=== PATIENT | female | born 1960 | race Caucasian/White ===

== ENCOUNTER 2016-05-05 09:26 | Emergency (ER) | payer OTHER ==
[2016-05-05 09:33] VITALS: BP 138/79; PULSE 73; TEMP 97.5; BMI 25.8
[2016-05-05] MEDS ORDERED: LORATADINE 10 MG TABLET PO ONE (10:07)
[2016-05-05] MEDS ORDERED: DEXAMETHASONE LIQUID 0.5 MG/5 ML 240 ML BULK BOTTLE PO ONE (10:07)
--- NOTE | 2016-05-05 10:07 | PDOC ---
History of Present Illness - General Chief Complaint: Sore Throat Stated Complaint: THROAT PAIN Time Seen by Provider: 05/05/16 09:48 History Source: Patient Exam Limitations: No Limitations - History of Present Illness Initial Comments: CHIEF COMPLAINT: 56 y/o afebrile female with no significant PMH c/o facial swelling and feeling of throat closing this morning. HISTORY OF PRESENT ILLNESS: The patient states that yesterday her face got a little swollen and she had some sinus pressure and tooth pain. She took a PO benadryl, felt better and went to sleep. This morning she woke up and states it felt like her throat was closing. SHe states that feeling has subsided. She denies f/c, n/v/d, CP, SOB, swelling to lips or tongue, dyspnea, abd pain, and all other symptoms. Vital signs on arrival are within normal limits. REVIEW OF SYSTEMS: GENERAL/CONSTITUTIONAL: No fever/chills. No weakness. No weight change. HEAD, EYES, EARS, NOSE AND THROAT: No change in vision. No ear pain or discharge. +sore throat. +nasal congestion. +teeth pain. +throat closing sensation (resolved) CARDIOVASCULAR: No chest pain or shortness of breath. RESPIRATORY: No cough, wheezing, or hemoptysis. GASTROINTESTINAL: No abd pain, nausea, vomiting, diarrhea. GENITOURINARY: No dysuria, frequency, or change in urination. MUSCULOSKELETAL: No joint or muscle swelling or pain. No neck or back pain. SKIN: No rash or easy bruising. NEUROLOGIC: No headache, vertigo, loss of consciousness, or loss of sensation. PHYSICAL EXAM: GENERAL: The patient is awake, alert, and fully oriented, in no acute distress. She is very well appearing, in NAD or obvious discomfort. HEAD: Normal with no signs of trauma. TTP of maxillary sinuses. No facial swelling. ENT: Pupils equal, round and reactive to light, extraocular movements intact, sclera anicteric, conjunctiva clear. Neck supple. No cervical lymphadenopathy. No tonsilar erythema or edema with possible exudate seen (could also be food particles). Uvula midline. No soft/hard palate deformities. No trismus. LUNGS: Clear to auscultation bilaterally. Normal excursion. No respiratory distress or use of accessory muscles. CV: RRR, S1/S2, no MRG. Cap refill < 2 sec. ABDOMEN: Soft, non-distended, non-tender even to deep palpation, no hepatomegaly or splenomegaly, no masses. EXTREMITIES: Normal range of motion, no edema. NEUROLOGICAL: Normal speech, normal gait. CN II-XII grossly intact. PSYCH: Normal mood, normal affect. SKIN: Warm, dry, normal turgor, no rashes or lesions noted. Past History - Past Medical History Allergies/Adverse Reactions: Allergies Allergy/AdvReac Type Severity Reaction Status Date / Time shellfish derived Allergy Swelling Verified 05/05/16 09:28 NUTS Allergy FACIAL Uncoded 05/05/16 09:28 SWELLING, HIVES Other medical history: denies - Immunization History Immunization Up to Date: Yes (no flu) - Psycho/Social/Smoking Cessation Hx Anxiety: No Suicidal Ideation: No Smoking Status: No Smoking History: Never smoked Have you smoked in the past 12 months: No Number of Cigarettes Smoked Daily: 0 Information on smoking cessation initiated: No Hx Alcohol Use: No Drug/Substance Use Hx: No Substance Use Type: None *Physical Exam - Vital Signs Last Vital Signs Temp Pulse Resp BP Pulse Ox 97.5 F L 73 20 138/79 100 05/05/16 09:29 05/05/16 09:29 05/05/16 09:29 05/05/16 09:29 05/05/16 09:29 Medical Decision Making - Medical Decision Making A/P: 56 y/o female with sensation of throat swelling which has resolved. Suspect sinusitis. Plan is as follows: 1. PO decadron 2. PO claritin 3. Rapid strep Rapid strep - negative The patient was given her results. She remains well and states there has been no recurrence of her symptoms. Will discharge to home with diagnosis of sinusitis. Suggested she take OTC claritin or other antihistamine for symptoms and if needed a decongestant. Pt instructed to f/u with her PCP this week and return to the ER with any worsening or concerning symptoms. The patient verbalizes understanding of all instructions, has no further questions and is awaiting discharge. *DC/Admit/Observation/Transfer Diagnosis at time of Disposition: Sinusitis Qualifiers: Sinusitis location: maxillary Chronicity: acute Recurrence: not specified Qualified Code(s): J01.00 - Acute maxillary sinusitis, unspecified - Discharge Dispostion Disposition: HOME Condition at time of disposition: Good - Referrals Referrals: Roel,Alexis N., MD [Primary Care Provider] - Call tomorrow - Patient Instructions Printed Discharge Instructions: DI for Sinusitis Additional Instructions: Discharge Instructions: -Take a daily over the counter antihistamine, such as Claritin, zyrtec or aurora -If needed you can also take an over the counter decongestant, such as Sudafed -Follow up with your regular doctor within 1 week -Return to the ER with any worsening or concerning symptoms.
[2016-05-05] MEDS ORDERED: DEXAMETHASONE SOD PHOSPHATE 10 MG/1 ML VIAL ONE (10:19)
[2016-05-05] MEDS ORDERED: LORATADINE 10 MG TABLET ONE ×2 (10:20→11:13)
== END 2016-05-05 12:02 | disposition home or self-care (01) ==
LOC: JER 09:26
DX: J01.00 Acute maxillary sinusitis, unspecified (principal)
CPT/HCPCS: 87070; 87430; 99283-25

== ENCOUNTER 2016-07-19 22:54 | Emergency (ER) | payer OTHER ==
[2016-07-19 23:01] VITALS: BMI 27.4
[2016-07-19] MEDS ORDERED: SODIUM CHLORIDE 1,000 ML IV STA (23:20)
[2016-07-19] MEDS ORDERED: methylPREDNISolone NA SUCC 125 MG/2 ML VIAL IVPB ONE (23:20)
[2016-07-19] MEDS ORDERED: FAMOTIDINE 20 MG/50 ML IVPB 50 ML IVPB ONE (23:21)
--- NOTE | 2016-07-19 23:27 | PDOC ---
History of Present Illness - General Chief Complaint: Allergic Reaction Stated Complaint: ALLERGIC REACTION Time Seen by Provider: 07/19/16 23:09 History Source: Patient, Significant Other Exam Limitations: No Limitations - History of Present Illness Initial Comments: 07/19/16 23:21 56yo Female patient presents to ED c/o allergic reaction. Patient states she was experiencing back pain tonight and took Naproxen prior to going to bed. She states she woke up, and could not open her eyes. She looked in mirror and noticed both eyes were swollen. Patient states she took Lenora prior to ED arrival. She denies CP, Abd pain, n/v/d, rash, throat swelling, throat pain, fever, or any other complaints at this time. Timing/Duration: reports: just prior to arrival Severity: reports: moderate Possible Cause: Yes: other (Naproxen ) Modifying Factors: worse with: activity, albuterol inhaler, albuterol nebulizer , antibiotics, coughing, lying down, oxygen, rest, other Associated Symptoms: denies: denies symptoms, chest pain/soreness, cough, dizziness, earache, facial pain, fever/chills, headache, lightheadedness, muscle aches, nasal congestion, nasal drainage, shortness of breath, sinus infection, sore throat, wheezing, other Aspirin Received prior to arrival: No: no aspirin today, unknown, 81 mg x 1, 81 mg x 2, 81 mg x 3, 81 mg x 4, 325 mg x 1, provided at home, provided by EMS, provided by ED ASA Contraindications(Core Measure): No: Allergy, Other, Active Blding w/i 24 hrs., Plavix, Receiving Warfarin Past History - Travel Traveled outside of the country in the last 30 days: No Close contact w/someone who was outside of country & ill: No - Past Medical History Allergies/Adverse Reactions: Allergies Allergy/AdvReac Type Severity Reaction Status Date / Time naproxen Allergy Verified 07/19/16 23:42 shellfish derived Allergy Swelling Verified 07/19/16 23:01 NUTS Allergy FACIAL Uncoded 07/19/16 23:01 SWELLING, HIVES Home Medications: Ambulatory Orders Diphenhydramine HCl [Benadryl -] 25 mg PO Q6H PRN #28 capsule 07/20/16 Famotidine [Pepcid] 40 mg PO BID #14 tablet 07/20/16 Prednisone 10 mg PO ASDIR #21 tablet 07/20/16 Other medical history: Denies - Immunization History Immunization Up to Date: Yes (no flu) - Psycho/Social/Smoking Cessation Hx Anxiety: No Suicidal Ideation: No Smoking Status: No Smoking History: Never smoked Have you smoked in the past 12 months: No Number of Cigarettes Smoked Daily: 0 Information on smoking cessation initiated: No Hx Alcohol Use: No Drug/Substance Use Hx: No Substance Use Type: None Respiratory Specific PMHX - Complaint Specific PMHX Angina: No Bronchitis: No Pneumonia: No Pulmonary Embolus: No TB (Tuberculosis): No Review of Systems - Review of Systems Able to Perform ROS?: Yes Is the patient limited Ukrainian proficient: No Constitutional: No: Chills, Fever HEENTM: Yes: Other (Bilateral Eye swelling). No: Eye Pain, Blurred Vision, Tearing, Double Vision, Nose Bleeding, Throat Pain, Throat Swelling, Mouth Pain , Difficulty Swallowing, Mouth Swelling Respiratory: No: Cough, Shortness of Breath, Stridor, Wheezing Cardiac (ROS): No: Chest Pain, Edema, Palpitations, Syncope, Chest Tightness ABD/GI: No: Nausea, Vomiting : No: Dysuria, Flank Pain, Hematuria Musculoskeletal: No: Back Pain Integumentary: Yes: Other (Bilateral Eye lid swelling.). No: Bruising, Erythema , Rash All Other Systems: Reviewed and Negative *Physical Exam - Vital Signs Last Vital Signs Temp Pulse Resp BP Pulse Ox 98.0 F 67 19 126/71 99 07/19/16 22:55 07/19/16 22:55 07/19/16 22:55 07/19/16 22:55 07/19/16 22:55 - Physical Exam General Appearance: Yes: Nourished, Appropriately Dressed. No: Apparent Distress, Mild Distress, Moderate Distress, Severe Distress HEENT: positive: EOMI, CARROL, Normal ENT Inspection, Normal Voice, Symmetrical, TMs Normal, Pharynx Normal, Other (Bilateral upper and lower eye lids edema). negative: Pharyngeal Erythema, Tonsillar Exudate, Nasal Congestion, Rhinorrhea, Sinus Tenderness, TM Bulging, TM Dull, TM Erythema Neck: positive: Trachea midline, Supple Respiratory/Chest: positive: Lungs Clear, Normal Breath Sounds. negative: Respiratory Distress, Accessory Muscle Use, Labored Respiration, Rapid RR Cardiovascular: positive: Regular Rhythm, Regular Rate Gastrointestinal/Abdominal: positive: Normal Bowel Sounds, Soft. negative: Distended, Guarding, Rebound, Tenderness Musculoskeletal: positive: Normal Inspection. negative: CVA Tenderness Extremity: positive: Normal Capillary Refill, Normal Inspection, Normal Range of Motion. 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 PATIENT OFFERED [facility] TREATMENT, BUT REFUSED STATING SHE WANTED TO GO HOME. SHE DENIES ANY ACUTE DISTRESS AT THIS TIME. *DC/Admit/Observation/Transfer Diagnosis at time of Disposition: Allergic reaction caused by a drug Qualifiers: Encounter type: initial encounter Qualified Code(s): T78.40XA - Allergy, unspecified, initial encounter - Discharge Dispostion Disposition: HOME Condition at time of disposition: Improved Admit: No - Prescriptions Prescriptions: Diphenhydramine HCl [Benadryl -] 25 mg PO Q6H PRN #28 capsule PRN Reason: ALLERGIC REACTION Famotidine [Pepcid] 40 mg PO BID #14 tablet Prednisone 10 mg PO ASDIR #21 tablet - Patient Instructions Printed Discharge Instructions: DI for Adverse Drug Reaction -- Allergic Additional Instructions: FOLLOW UP WITH YOUR PRIMARY CARE PROVIDER. CALL TO SCHEDULE APPOINTMENT. TAKE MEDICATIONS PRESCRIBED. RETURN IF SYMPTOMS WORSEN OR ANY CONCERNS FOR FURTHER EVALUATION. Print Language: TAMAZIGHT - Post Discharge Activity Work/School Note: Back to Work
[2016-07-20] MEDS ORDERED: methylPREDNISolone NA SUCC 125 MG/2 ML VIAL ONE ×2 (00:03→00:05)
[2016-07-20] MEDS ORDERED: FAMOTIDINE 20 MG/50 ML IVPB 50 ML IVPB ONE (00:04)
[2016-07-20 00:58] LABS: ALBUMIN 4.2 g/dl (3.4-5.0); BILIRUBIN,TOTAL 0.3 mg/dL (0.2-1.0); COCKROFT - GAULT 78.285; TOT PROT 7.7 g/dl (6.4-8.2)
[2016-07-20 01:12] LABS: BASOPHIL 0.6 % (0-2.0); EOSINOPHIL 0.8 % (0-4.5); MCH 29.3 pg (25.7-33.7); MCHC 32.9 g/dl (32.0-36.0); MEAN CELL VOLUME 89.3 fl (80-96); MEAN PLT VOLUME 7.4 fl (7.5-11.1); NEUTROPHILS 54.6 % (42.8-82.8); PLATELET COUNT 330 K/MM3 (134-434); RDW 14.2 % (11.6-15.6); WHITE BLOOD COUNT 5.3 K/mm3 (4.0-10.0)
--- NOTE | 2016-07-20 02:05 | PDOC ---
*Physical Exam - Vital Signs Last Vital Signs Temp Pulse Resp BP Pulse Ox 98.0 F 89 17 136/93 100 07/19/16 22:55 07/20/16 00:40 07/20/16 00:40 07/20/16 00:40 07/20/16 00:40 ED Treatment Course - LABORATORY CBC & Chemistry Diagram: 07/20/16 00:57 07/20/16 00:20 - ADDITIONAL ORDERS Additional order review: Laboratory Results 07/20/16 00:20 Sodium 140 Potassium 4.2 Chloride 103 Carbon Dioxide 29 Anion Gap 8 BUN 19 H D Creatinine 1.0 D Creat Clearance w eGFR 57.78 Random Glucose 90 Calcium 9.0 Total Bilirubin 0.3 AST 18 ALT 24 Alkaline Phosphatase 85 Total Protein 7.7 Albumin 4.2 07/20/16 00:57 RBC 3.75 MCV 89.3 MCHC 32.9 RDW 14.2 MPV 7.4 L Neutrophils % 54.6 Lymphocytes % 32.9 Monocytes % 11.1 H Eosinophils % 0.8 Basophils % 0.6 - Medications Given in the ED: ED Medications Discontinued Medications Generic Name Dose Route Start Last Admin Trade Name Freq PRN Reason Stop Dose Admin Diphenhydramine HCl 25 mg 07/19/16 23:20 07/20/16 00:00 Benadryl Injection - IVPUSH 07/19/16 23:21 25 mg ONCE ONE Administration Sodium Chloride 1,000 mls @ 1,000 mls/hr 07/19/16 23:20 07/20/16 00:39 Normal Saline - IV 07/20/16 00:19 1,000 mls/hr ASDIR STA Administration Famotidine/Sodium Chloride 50 mls @ 100 mls/hr 07/19/16 23:21 07/20/16 00:00 Pepcid 20 Mg Premixed Ivpb - IVPB 07/19/16 23:50 100 mls/hr ONCE ONE Administration Methylprednisolone Sodium Succinate 125 mg 07/19/16 23:20 07/20/16 00:00 Solu-Medrol - IVPB 07/19/16 23:21 125 mg ONCE ONE Administration Medical Decision Making - Medical Decision Making 07/20/16 02:04 agree with care from SAHRA Montes *DC/Admit/Observation/Transfer Diagnosis at time of Disposition: Allergic reaction caused by a drug - Discharge Dispostion Disposition: HOME - Prescriptions Prescriptions: Diphenhydramine HCl [Benadryl -] 25 mg PO Q6H PRN #28 capsule PRN Reason: ALLERGIC REACTION Famotidine [Pepcid] 40 mg PO BID #14 tablet Prednisone 10 mg PO ASDIR #21 tablet - Referrals Referrals: Alexis Sevilla MD [Primary Care Provider] - - Patient Instructions Printed Discharge Instructions: DI for Adverse Drug Reaction -- Allergic Additional Instructions: FOLLOW UP WITH YOUR PRIMARY CARE PROVIDER. CALL TO SCHEDULE APPOINTMENT. TAKE MEDICATIONS PRESCRIBED. RETURN IF SYMPTOMS WORSEN OR ANY CONCERNS FOR FURTHER EVALUATION. Print Language: K[place]HILI - Post Discharge Activity Work/School Note: Back to Work
[2016-07-20 02:36] VITALS: BP 128/88; PULSE 76; TEMP 98.2
== END 2016-07-20 02:50 | disposition home or self-care (01) ==
LOC: JER 22:54
PROC: 3E0337Z Introduction of Electrolytic and Water Balance Substance into Peripheral Vein, Percutaneous Approach (ICD-10-PCS; principal; 2016-07-19)
PROC: 3E033GC Introduction of Other Therapeutic Substance into Peripheral Vein, Percutaneous Approach (ICD-10-PCS; 2016-07-19)
DX: T78.40XA Allergy, unspecified, initial encounter (principal); H02.844 Edema of left upper eyelid
CPT/HCPCS: 36415; 80053; 85025; 96361; 96365; 96375; 99282-25

== ENCOUNTER 2018-02-20 11:21 | Emergency (ER) | payer BC ==
[2018-02-20 12:04] VITALS: BP 122/66; PULSE 76; TEMP 98.8; BMI 25.0
--- NOTE | 2018-02-20 13:21 | PDOC ---
History of Present Illness - General Chief Complaint: Cold Symptoms Stated Complaint: CONGESTION,COUGH Time Seen by Provider: 02/20/18 12:59 - History of Present Illness Initial Comments: 02/20/18 13:19 57-year-old female without comorbidities presents for evaluation of cough and intermittent subjective fever 5 days. Past History - Past Medical History Allergies/Adverse Reactions: Allergies Allergy/AdvReac Type Severity Reaction Status Date / Time naproxen Allergy Verified 02/20/18 12:04 shellfish derived Allergy Swelling Verified 02/20/18 12:04 NUTS Allergy FACIAL Uncoded 02/20/18 12:04 SWELLING, HIVES Home Medications: Ambulatory Orders Diphenhydramine HCl [Benadryl -] 25 mg PO Q6H PRN #28 capsule 07/20/16 Famotidine [Pepcid] 40 mg PO BID #14 tablet 07/20/16 Prednisone 10 mg PO ASDIR #21 tablet 07/20/16 Guaifenesin Dm [Mucinex Dm -] 2 each PO BID #20 tab.er.12h 02/20/18 COPD: No - Immunization History Immunization Up to Date: Yes (no flu) - Suicide/Smoking/Psychosocial Hx Smoking Status: No Smoking History: Never smoked Have you smoked in the past 12 months: No Number of Cigarettes Smoked Daily: 0 Information on smoking cessation initiated: No Hx Alcohol Use: No Drug/Substance Use Hx: No Substance Use Type: None Review of Systems - Review of Systems Constitutional: Yes: Fever Respiratory: Yes: Cough *Physical Exam - Vital Signs Last Vital Signs Temp Pulse Resp BP Pulse Ox 98.8 F 76 19 122/66 98 02/20/18 11:59 02/20/18 11:59 02/20/18 11:59 02/20/18 11:59 02/20/18 11:59 - Physical Exam Comments: 02/20/18 13:19 HEAD: NC/AT EYES: Conjuntiva clear Ears: Canals and TM's normal NOSE: No d/c THROAT: Moist mucous membrances, oral pharanx clear, uvula midline NECK: Supple without adenopathy CARDIAC: S1 S2 LUNGS: CTA Full and Equal breath sounds ABDOMEN: Soft NT ND MS: Full ROM in all joints without edema NEUROLOGIC: No gross sensory or motor deficits, NVID SKIN: Normal color and temperature no lesions or rashes Moderate Sedation - Procedure Monitoring Vital Signs: Procedure Monitoring Vital Signs Temperature 98.8 F 02/20/18 11:59 Pulse Rate 76 02/20/18 11:59 Respiratory Rate 19 02/20/18 11:59 Blood Pressure 122/66 02/20/18 11:59 O2 Sat by Pulse Oximetry (%) 98 02/20/18 11:59 *DC/Admit/Observation/Transfer Diagnosis at time of Disposition: Upper respiratory infection - Discharge Dispostion Disposition: HOME Condition at time of disposition: Stable Decision to Admit order: No - Referrals Referrals: Alexis Sevilla MD [Primary Care Provider] - - Patient Instructions Printed Discharge Instructions: DI for Viral Upper Respiratory Infection -- Adult Additional Instructions: Return to the emergency room should symptoms worsen or go unresolved. Please take Mucinex as directed for cough Tylenol and Motrin as directed for fever and follow-up with your primary care physician in one to 2 days for further evaluation and treatment options. - Post Discharge Activity
== END 2018-02-20 13:27 | disposition home or self-care (01) ==
LOC: JERFT 11:21
DX: J06.9 Acute upper respiratory infection, unspecified (principal)
CPT/HCPCS: 99281-25

== ENCOUNTER 2018-03-12 23:46 | Emergency (ER) | payer BC ==
[2018-03-12 23:54] VITALS: BMI 24.8
--- NOTE | 2018-03-13 00:27 | PDOC ---
Attending Attestation - HPI HPI: 03/13/18 00:45 The patient is a 57 year old female with no past medical history who presents to the emergency department for evaluation of shortness of breath and coughing. The patient reports a 3 day history of productive cough with green sputum. She reports a fever in the 100s taken today, which she took tylenol with minimal alleviation. Patient reports onset of shortness of breath with associated chest pain when she begins coughing. She reports a 1 month history of body aches. She notes she was seen a few weeks ago for similar symptoms which she was discharged with tylenol and mucinex. Patient denies flu shot vaccination and sick contact. Denies history of smoking. The patient denies headache, dizziness, chills, diarrhea, constipation, and urinary symptoms. Allergies: Naproxen Social History: No reported alcohol, cigarette, or drug use. PCP: Dr. Alexis Sevilla Documentation prepared by Deana Velasquez, acting as medical coding specialist for Rajni Maurice MD. - Physicial Exam PE: GENERAL: Awake, alert, and fully oriented, in no acute distress HEAD: No signs of trauma EYES: PERRLA, EOMI, sclera anicteric, conjunctiva clear ENT: Auricles normal inspection, hearing grossly normal, nares patent, oropharynx clear without exudates. Moist mucosa NECK: Normal ROM, supple. LUNGS: Breath sounds equal, clear to auscultation bilaterally. No wheezes, and no crackles HEART: +tachycardic ABDOMEN: Soft, nontender, normoactive bowel sounds. No guarding, no rebound. No masses EXTREMITIES: Normal range of motion, no edema. No clubbing or cyanosis. No cords, erythema, or tenderness SKIN: Warm, Dry, normal turgor, no rashes or lesions noted. <Deana Velasquez - Last Filed: 03/13/18 00:45> - Resident Resident Name: Desire Kimble - ED Attending Attestation I have performed the following: I have examined & evaluated the patient, The case was reviewed & discussed with the resident, I agree w/resident's findings & plan - Medical Decision Making 03/13/18 02:04 Pt will be discharged. She feels better. 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 She has no chest pain. Exam normal. She never developed wheezing. <Rajni Maurice - Last Filed: 03/13/18 02:05>
[2018-03-13] MEDS ORDERED: ALBUTEROL SO4 2.5/IPRATROPIUM 0.5 INH SOL 3 ML VIAL.NEB. NEB ONE ×4 (00:34→01:11)
[2018-03-13] MEDS ORDERED: AZITHROMYCIN 500 MG TABLET PO ONE (00:35)
[2018-03-13] MEDS ORDERED: DEXAMETHASONE LIQUID 0.5 MG/5 ML 240 ML BULK BOTTLE PO ONE (00:37)
--- NOTE | 2018-03-13 00:52 | PDOC ---
History of Present Illness - General Chief Complaint: Shortness of Breath Stated Complaint: DIFFICULTY OF BREATHING Time Seen by Provider: 03/13/18 00:27 - History of Present Illness Initial Comments: 03/13/18 00:37 The patient is a 57 year old female -- who presents with 1 month h/o cough. States cough is constant, intermittently productive of greenish sputum. Notes fever of 100+ degrees Farenheit yesterday for which she took Tylenol. State she was evaluated in our ED earlier this month for her symptoms and was given Mucinex and discharged home. The patient denies chest pain, abdominal pain, diarrhea/constipation, dysuria/ hematuria, nausea/vomiting, sore throat, rhinorrhea. Allergy: Naproxen PMD: Dr. Alexis Sevilla As per EMR, patient was evaluated in fast track on 02/20/18 for cough and fever and was discharged home with supportive care. Past History - Past Medical History Allergies/Adverse Reactions: Allergies Allergy/AdvReac Type Severity Reaction Status Date / Time naproxen Allergy Verified 03/12/18 23:51 shellfish derived Allergy Swelling Verified 03/12/18 23:51 NUTS Allergy Severe FACIAL Uncoded 03/12/18 23:52 SWELLING, HIVES Eggplant Allergy Uncoded 03/12/18 23:54 Home Medications: Ambulatory Orders Diphenhydramine HCl [Benadryl -] 25 mg PO Q6H PRN #28 capsule 07/20/16 Famotidine [Pepcid] 40 mg PO BID #14 tablet 07/20/16 Prednisone 10 mg PO ASDIR #21 tablet 07/20/16 Guaifenesin Dm [Mucinex Dm -] 2 each PO BID #20 tab.er.12h 02/20/18 Albuterol Sulfate Inhaler - [Ventolin HFA Inhaler -] 1 - 2 inh PO QID #1 inhaler 03/13/18 Azithromycin [Zithromax Tri-Clay (3 DAYS) -] 500 mg PO DAILY #3 tablet 03/13/18 COPD: No Other medical history: Pt denies - Immunization History Immunization Up to Date: Yes (no flu) - Suicide/Smoking/Psychosocial Hx Smoking Status: No Smoking History: Never smoked Have you smoked in the past 12 months: No Number of Cigarettes Smoked Daily: 0 Information on smoking cessation initiated: No Hx Alcohol Use: No Drug/Substance Use Hx: No Substance Use Type: None Review of Systems - Review of Systems Constitutional: Yes: Fever. No: Chills HEENTM: No: Recent change in vision, Throat Pain Respiratory: Yes: Productive cough. No: Shortness of Breath, Hemoptysis Cardiac (ROS): No: Chest Pain, Lightheadedness, Palpitations, Syncope ABD/GI: No: Constipated, Diarrhea, Nausea, Vomiting *Physical Exam - Vital Signs Last Vital Signs Temp Pulse Resp BP Pulse Ox 98.1 F 101 H 19 135/69 98 03/12/18 23:52 03/12/18 23:52 03/12/18 23:52 03/12/18 23:52 03/12/18 23:52 - Physical Exam General Appearance: Yes: Nourished, Appropriately Dressed HEENT: positive: Normal Voice, Hearing Grossly Normal. negative: Pharyngeal Erythema, Tonsillar Exudate, TM Bulging, TM Erythema Neck: positive: Supple Respiratory/Chest: positive: Lungs Clear, Normal Breath Sounds Cardiovascular: positive: S1, S2. negative: Edema, JVD, Murmur Extremity: positive: Normal Capillary Refill, Normal Inspection Integumentary: positive: Normal Color, Dry, Warm Neurologic: positive: Fully Oriented, Alert Moderate Sedation - Procedure Monitoring Vital Signs: Procedure Monitoring Vital Signs Temperature 98.1 F 03/12/18 23:52 Pulse Rate 101 H 03/12/18 23:52 Respiratory Rate 19 03/12/18 23:52 Blood Pressure 135/69 03/12/18 23:52 O2 Sat by Pulse Oximetry (%) 98 03/12/18 23:52 Medical Decision Making - Medical Decision Making 03/13/18 00:52 57 year old female with subjective fever and 1 month h/o of worsening cough. Tachycardic (HR 101) other VS unremarkable. Clinical suspicion for viral URI, however given patient's persistent, productive cough will obtain CXR to r/o PNA , lung mass. Duo Neb for symptomatic treatment. Reassess. 03/13/18 01:25 Symptomatic improvement s/p Duo Neb CXR pending 03/13/18 02:04 My read of CXR shows no infiltrate/consolidation/mass. Clear costophrenic angles, no cardiomegaly, no PVC. Patient assessed @ bedside, symptomatically improved. Will discharge home with return precautions and PMD follow-up. I discussed the physical exam findings, ancillary test results and final diagnoses with the patient. I answered all of the patient's questions. The patient was satisfied with the care received and felt comfortable with the discharge plan and treatment plan. The patient will return to the Emergency Department with any new, persistent or worsening symptoms. *DC/Admit/Observation/Transfer Diagnosis at time of Disposition: Cough - Discharge Dispostion Disposition: HOME Condition at time of disposition: Good - Prescriptions Prescriptions: Albuterol Sulfate Inhaler - [Ventolin HFA Inhaler -] 1 - 2 inh PO QID #1 inhaler Azithromycin [Zithromax Tri-Clay (3 DAYS) -] 500 mg PO DAILY #3 tablet - Referrals Referrals: Alexis Sevilla MD [Primary Care Provider] - - Patient Instructions Additional Instructions: An antibiotic has been called to your pharmacy. Please take the entire prescribed course. Follow up with your primary care doctor in the next 3 days. Return to the Emergency Department for any new/worsening/concerning symptoms including increased severity of shortness of breath, chest pain. - Post Discharge Activity
[2018-03-13] MEDS ORDERED: AZITHROMYCIN 500 MG TABLET ONE (01:11)
[2018-03-13] MEDS ORDERED: DEXAMETHASONE SOD PHOSPHATE 4 MG/1 ML VIAL ONE (01:12)
[2018-03-13 02:59] VITALS: BP 121/78; PULSE 91; TEMP 97.9
== END 2018-03-13 03:00 | disposition home or self-care (01) ==
LOC: JER 23:46
PROC: 3E0F7GC Introduction of Other Therapeutic Substance into Respiratory Tract, Via Natural or Artificial Opening (ICD-10-PCS; principal; 2018-03-12)
DX: R05 Cough (principal)
CPT/HCPCS: 71046-TC-FY; 99282-25

== ENCOUNTER 2021-08-25 16:40 | Emergency (ER) | payer OTHER, BC ==
[2021-08-25 16:51] VITALS: BP 119/84; PULSE 65; TEMP 98.6; BMI 25.0
[2021-08-25] MEDS ORDERED: ACETAMINOPHEN 500 MG TABLET (FP) PO ONE (18:59)
[2021-08-25] MEDS ORDERED: ACETAMINOPHEN 500 MG TABLET (FP) ONE (19:11)
== END 2021-08-25 20:15 | disposition home or self-care (01) ==
LOC: JERFT 16:40
DX: S09.90XA Unspecified injury of head, initial encounter (principal); W21.02XA Struck by soccer ball, initial encounter
CPT/HCPCS: 70450-TC; 72125-TC; 99284-25

== ENCOUNTER 2023-01-12 09:04 | Emergency (ER) | payer BC ==
[2023-01-12 09:11] VITALS: BMI 25.8
[2023-01-12] MEDS ORDERED: SODIUM CHLORIDE 0.9% 500 ML INFUS.BAG IV ONE (09:56)
[2023-01-12] MEDS ORDERED: METOCLOPRAMIDE HCL INJECTION 10 MG/2 ML VIAL IVPUSH ONE (09:56)
[2023-01-12] MEDS ORDERED: ACETAMINOPHEN 1000 MG/100 ML BAG IVPB ONE (09:56)
[2023-01-12] MEDS ORDERED: METOCLOPRAMIDE HCL INJECTION 10 MG/2 ML VIAL ONE (10:12)
[2023-01-12] MEDS ORDERED: ACETAMINOPHEN INJECTION 100 ML IVPB ONE (10:13)
[2023-01-12] MEDS ORDERED: MECLIZINE HCL 25 MG TABLET (FP) PO ONE (10:58)
[2023-01-12 10:59] LABS: BASO % 0.5 % (0-2.0); EOS % 2.9 % (0-4.5); HEMATOCRIT 39.4 % (32.4-45.2); HEMOGLOBIN 12.7 GM/dL (10.7-15.3); LYMPH % 30.8 % (8-40); MCH 30.1 pg (25.7-33.7); MCHC 32.4 g/dl (32.0-36.0); MEAN CELL VOLUME 93.1 fl (80-96); MEAN PLT VOLUME 6.7 fl (7.5-11.1); MONO % 15.4 % (3.8-10.2); NEUT % 50.4 % (42.8-82.8); PLATELET COUNT 340 10^3/uL (134-434); RBC 4.23 M/mm3 (3.60-5.2); WHITE BLOOD COUNT 3.4 K/mm3 (4.0-10.0)
[2023-01-12 11:15] LABS: POTASSIUM 4.3 mmol/L (3.5-5.1)
[2023-01-12] MEDS ORDERED: MECLIZINE HCL 25 MG TABLET (FP) ONE (11:15)
[2023-01-12 11:17] LABS: ALBUMIN 3.8 g/dl (3.4-5.0); BLOOD UREA NITROGEN 19.7 mg/dL (7-18)
[2023-01-12 11:20] LABS: CREATININE 0.8 mg/dL (0.55-1.3)
[2023-01-12 11:22] LABS: BILIRUBIN,TOTAL 0.4 mg/dL (0.2-1); TOT PROT 7.5 g/dl (6.4-8.2)
[2023-01-12 14:05] VITALS: BP 102/55; PULSE 65; RESP 18; TEMP 98.2
== END 2023-01-12 15:01 | disposition home or self-care (01) ==
LOC: JER 09:04
PROC: 3E033GC Introduction of Other Therapeutic Substance into Peripheral Vein, Percutaneous Approach (ICD-10-PCS; principal; 2023-01-12)
PROC: 3E033NZ Introduction of Analgesics, Hypnotics, Sedatives into Peripheral Vein, Percutaneous Approach (ICD-10-PCS; 2023-01-12)
DX: R51.9 Headache, unspecified (principal); R42 Dizziness and giddiness; H53.149 Visual discomfort, unspecified; Z20.822 Contact with and (suspected) exposure to COVID-19
CPT/HCPCS: 0241U-QW; 36415; 70450-TC; 80053; 85025; 99284-25

== ENCOUNTER 2023-08-05 13:02 | Emergency (ER) | payer BC ==
[2023-08-05 13:27] VITALS: RESP 18; TEMP 98.3; BMI 27.4
[2023-08-05] MEDS ORDERED: ACETAMINOPHEN INJECTION 100 ML IVPB ONE (14:18)
[2023-08-05] MEDS ORDERED: METOCLOPRAMIDE HCL INJECTION 10 MG/2 ML VIAL ONE (14:18)
[2023-08-05] MEDS: SODIUM CHLORIDE 1,000 ML IV STA (14:25)
[2023-08-05] MEDS: ACETAMINOPHEN 1000 MG/100 ML BAG IVPB ONE (14:25)
[2023-08-05] MEDS: METOCLOPRAMIDE HCL INJECTION 10 MG/2 ML VIAL IVPB ONE (14:41)
[2023-08-05 14:42] LABS: BASO % 0.3 % (0-2.0); EOS % 1.2 % (0-4.5); HEMATOCRIT 36.1 % (32.4-45.2); HEMOGLOBIN 12.3 GM/dL (10.7-15.3); LYMPH % 33.9 % (8-40); MCH 31.2 pg (25.7-33.7); MEAN CELL VOLUME 91.8 fl (80-96); MEAN PLT VOLUME 6.9 fl (7.5-11.1); MONO % 12.9 % (3.8-10.2); NEUT % 51.7 % (42.8-82.8); PLATELET COUNT 304 10^3/uL (134-434); RBC 3.93 M/mm3 (3.60-5.2); RDW 13.7 % (11.6-15.6)
[2023-08-05 14:48] LABS: INR 1.03 (0.83-1.09); PROTHROMBIN TIME (PATIENT) 11.6 SEC (9.7-13.0)
[2023-08-05 14:51] LABS: ACTIVATED PTT 32.4 SECONDS (25.2-36.5)
[2023-08-05 14:58] LABS: POTASSIUM 4.1 mmol/L (3.5-5.1)
[2023-08-05 15:00] LABS: CALCIUM 9.2 mg/dL (8.5-10.1)
[2023-08-05 15:04] LABS: ALBUMIN 3.6 g/dl (3.4-5.0); CREATININE 0.8 mg/dL (0.55-1.3)
[2023-08-05 15:05] LABS: BILIRUBIN,TOTAL 0.3 mg/dL (0.2-1); TOT PROT 7.2 g/dl (6.4-8.2)
[2023-08-05 16:17] VITALS: BP 109/68; PULSE 57
== END 2023-08-05 17:11 | disposition home or self-care (01) ==
LOC: JER 13:02
PROC: 3E033NZ Introduction of Analgesics, Hypnotics, Sedatives into Peripheral Vein, Percutaneous Approach (ICD-10-PCS; principal; 2023-08-05)
PROC: 3E033GC Introduction of Other Therapeutic Substance into Peripheral Vein, Percutaneous Approach (ICD-10-PCS; 2023-08-05)
PROC: 3E0337Z Introduction of Electrolytic and Water Balance Substance into Peripheral Vein, Percutaneous Approach (ICD-10-PCS; 2023-08-05)
DX: R51.9 Headache, unspecified (principal); M25.561 Pain in right knee; R42 Dizziness and giddiness; M54.2 Cervicalgia; M54.9 Dorsalgia, unspecified; M25.531 Pain in right wrist; M25.532 Pain in left wrist; M25.562 Pain in left knee; W10.8XXA Fall (on) (from) other stairs and steps, initial encounter; Z20.822 Contact with and (suspected) exposure to COVID-19
CPT/HCPCS: 0241U-QW; 36415; 70450-TC; 71046-TC-FY; 72125-TC; 80053; 84484; 85025; 85610; 85730; 93005; 93010; 99285-25; J0131